=== PATIENT | male | born 1975 | race African-American/Black ===

== ENCOUNTER 2020-05-28 04:25 | Emergency (ER) | payer OTHER ==
[~2020-05-28] VITALS: Ht 180.3 cm; Wt 85.7 kg
--- NOTE | 2020-05-28 04:40 | NUR ---
PT AAOX4. BIBRA C/O SI TO JUMP IN FRONT OF TRAFFIC. -HI. PT REQUESTING VOLUNTARY PSYCH ADMISSION. PT PLACED IN BED 13, IN A GOWN, ON MONITOR, AND PULSE OX. BELONINGS PLACED IN LOCKER. SITTER AT BEDSIDE. MD AT BEDSIDE FOR EVAL. AWAITING ORDERS. VSS.
--- NOTE | 2020-05-28 04:49 | NUR ---
[employer] SUPERVISOR AT BEDSIDE
--- NOTE | 2020-05-28 04:49 | NUR ---
COVID SWABBED, SENT TO LAB
[2020-05-28 04:52] LABS: BASOPHILS # (AUTO) 0.1 /CMM (0.0-0.2); BASOPHILS % (AUTO) 0.8 % (0.0-2.0); EOSINOPHILS % (AUTO) 0.9 % (0.0-6.0); HEMATOCRIT 47 % (39-51); HEMOGLOBIN 15.2 g/dL (13.5-17.5); LYMPHOCYTES # (AUTO) 2.5 /CMM (0.8-4.8); LYMPHOCYTES % (AUTO) 23.9 % (20.0-44.0); MEAN CORPUSCULAR HGB CONC 33 g/dl (31.0-36.0); MEAN CORPUSCULAR VOLUME 91 fL (80-96); MONOCYTES # (AUTO) 0.8 /CMM (0.1-1.30); MONOCYTES % (AUTO) 7.7 % (2.0-12.0); NEUTROPHILS # (AUTO) 6.9 /CMM (1.8-8.9); NEUTROPHILS % (AUTO) 66.7 % (43.0-81.0); PLATELET COUNT (AUTO) 262 /CMM (150-450); RED BLOOD CELL COUNT(AUTO) 5.16 MIL/uL (4.5-6.0); WHITE BLOOD COUNT (AUTO) 10.4 K/uL (4.3-11.0)
--- NOTE | 2020-05-28 04:53 | NUR ---
UNABLE TO PROVIDE URINE
[2020-05-28 05:01] LABS: CALCIUM, SERUM 9.1 mg/dL (8.5-10.1); CARBON DIOXIDE 23 mmol/L (21-32); CHLORIDE 101 mmol/L (98-107); CREATININE 1.3 mg/dL (0.6-1.3); GLUCOSE 98 mg/dL (74-106); POTASSIUM 3.7 mmol/L (3.5-5.1); SODIUM SERUM 137 mmol/L (136-145); UREA NITROGEN, BLOOD 14 mg/dL (7-18)
--- NOTE | 2020-05-28 05:02 | NUR ---
UNABLE TO PROVIDE URINE
[2020-05-28 05:06] LABS: ACETAMINOPHEN < 2 ug/ml (10-30); ALANINE AMINOTRANSFERASE 18 U/L (12-78); ALBUMIN 3.8 g/dL (3.4-5.0); ALCOHOL, BLOOD 44 mg/dL (0-0); ALKALINE PHOSPHATASE 63 U/L (46-116); ASPARTATE AMINOTRANSFERASE 31 U/L (15-37); BILIRUBIN,DIRECT 0.1 mg/dL (0.0-0.2); BILIRUBIN,TOTAL 0.3 mg/dL (0.2-1.0); TOTAL PROTEIN, SERUM 8.1 g/dL (6.4-8.2)
--- NOTE | 2020-05-28 05:28 | NUR ---
Call from lab. Rapid covid negative.
--- NOTE | 2020-05-28 05:34 | NUR ---
ASKED PT TO PROVIDE URINE SAMPLE, UNABLE TO.
--- NOTE | 2020-05-28 05:39 | NUR ---
PT PROVIDED URINE SAMPLE, SENT TO LAB
[2020-05-28 05:44] LABS: APPEARANCE,URINE Clear (CLEAR); BILIRUBIN,URINE Negative (NEGATIVE); BLOOD, URINE Negative Ery/uL (NEGATIVE); COLOR,URINE Yellow (YELLOW); LEUKOCYTE ESTERASE ,URINE Negative (NEGATIVE); NITRITE, URINE Negative (NEGATIVE); PH,URINE 5.5 (5.0-8.0); PROTEIN,URINE Negative (NEGATIVE); UGLUCOSE Negative (NEGATIVE); UROBILINOGEN,URINE 0.2 EU/dL (0.2)
[2020-05-28 05:54] LABS: BACTERIA,URINE None seen /HPF (None Seen); RBC,URINE 0-2 /HPF (0-2); WBC,URINE 0-2 /HPF (0-3)
[2020-05-28 05:55] LABS: SQUAMOUS EPITHELIAL CELL,UR Rare /HPF (None Seen)
--- NOTE | 2020-05-28 06:50 | NUR ---
Facesheet and clinicals faxed to [facility].
--- NOTE | 2020-05-28 11:00 | NUR ---
CALL FROM CHRISTINE WITH TX INFO: ACCEPTED AT [facility] JASVIR BETANCUR/JHONY REPORT TO [phone] X [phone]
--- NOTE | 2020-05-28 11:11 | NUR ---
CALLED [id number] NATALY WILL CALL US WITH ETA RESERVATION #[id number]
[2020-05-28 11:54] VITALS: BP 110/82
--- NOTE | 2020-05-28 11:55 | NUR ---
CALLED [facility] 4 TIMES. [phone] X [phone]. HOWEVERM PHONE JUST KEEPS RINGING AND NO-ONE IS PICKING UP
--- NOTE | 2020-05-28 12:02 | NUR ---
CALLED PSYCH INTAKE AGAIN, AND PER PSYCH INTAKE, THEY ALSO COULD NOT GET A HOLD OF THE CHARGE NURSE AND/OR THE NURSE ON THE FLOOR BECAUSE NOBODY IS STILL PICKING UP THE PHONE. THEREFORE WE ARE STILL UNABLE TO GIVE REPORT.
--- NOTE | 2020-05-28 13:06 | NUR ---
REPORT GIVEN TO RADHA JUÁREZ AT [facility]
== END 2020-05-28 13:00 ==
LOC: ER 04:28
DX: R45.851 Suicidal ideations (principal); F31.9 Bipolar disorder, unspecified; F41.9 Anxiety disorder, unspecified; Z20.828 Contact with and (suspected) exposure to other viral communicable diseases; Z59.0 Homelessness; F12.90 Cannabis use, unspecified, uncomplicated
CPT/HCPCS: 36415; 80048; 80076; 80299; 80307; 80320; 81001; 85025; 87426; 99285; C9803; 81000-TC; G0480

== ENCOUNTER 2021-04-30 22:19 | Emergency (ER) | payer OTHER ==
[~2021-04-30] VITALS: Ht 180.3 cm; Wt 86.2 kg
[2021-04-30 22:34] VITALS: BP 125/76
--- NOTE | 2021-04-30 22:48 | NUR ---
PT DENIES SI AND HI. STATED "I AM JUST GONNA GO HOME AND RELAX."
== END 2021-05-01 03:39 | disposition home or self-care (01) ==
LOC: ER 22:23
DX: Z53.21 Procedure and treatment not carried out due to patient leaving prior to being seen by health care provider (principal); F32.9 Major depressive disorder, single episode, unspecified; F41.9 Anxiety disorder, unspecified